=== PATIENT | female | born 1975 | race Caucasian/White ===

== ENCOUNTER 2017-03-21 18:05 | Emergency (ER) | payer MEDICAID ==
[~2017-03-21] VITALS: Ht 160 cm; Wt 94.8 kg
[2017-03-21] MEDS ORDERED: Norco 5mg/325mg tab ORAL ONE (19:15)
[2017-03-21 19:20] VITALS: BP 159/93
--- NOTE | 2017-03-21 19:39 | Emergency Room Report ---
History of Present Illness General Chief Complaint: Pain Source: Patient Present Illness HPI 41 YO Male presents to the ED c/o left anterior medial knee pain 10/10 in severity x3 days denies appreciable trauma or fall. Pain with full extension of the leg. No previous history of injury. Denies erythema, fevers, chills or increased temperature palpation. Denies swelling,Claudication or bruises. Denies numbness tingling or loss of sensation or gross motor movements of the extremities, incontinence of bowel or bladder. Denies CP, Palpitations, LOC, AMS , dizziness, Changes in Vision, Sensation, paresthesias, or a sudden severe headache. Allergies: Coded Allergies: IBUPROFEN (Verified Allergy, Unknown, 03/21/17) Patient History Past Medical History: see triage record Past Surgical History: none Pertinent Family History: none Last Menstrual Period: 2 weeks ago Immunizations: UTD Reviewed Nursing Documentation: PMH: Agreed, PSxH: Agreed Nursing Documentation-PMH Past Medical History: No Stated History Review of Systems All Other Systems: negative except mentioned in HPI Physical Exam Vital Signs Date Time Temp Pulse Resp B/P (MAP) Pulse Ox O2 Delivery O2 Flow Rate FiO2 03/21/17 18:15 97.9 81 16 159/93 99 Room Air Sp02 EP Interpretation: reviewed, normal General Appearance: no apparent distress, alert, GCS 15, non-toxic, obese Head: normocephalic, atraumatic ENT: hearing grossly normal, normal pharynx, no angioedema, normal voice Neck: full range of motion Respiratory: lungs clear, normal breath sounds, speaking full sentences Cardiovascular #1: regular rate, rhythm, no edema, normal capillary refill Cardiovascular #2: 2+ dorsalis pedis (R), 2+ dorsalis pedis (L) Rectal: deferred Musculoskeletal: back normal, gait/station normal, normal range of motion, tender - anteriomedial TTP, no increased laxity, no obvious deformity, exam difficult due to body habitus, no erythema, pt. has FROM with pain. Neurologic: alert, oriented x3, responsive, motor strength/tone normal, sensory intact, normal gait, speech normal Skin: normal color, no rash, warm/dry, well hydrated Medical Decision Making PA Attestation Dr. rob is my supervising Physician whom patient management has been discussed with. Diagnostic Impression: Primary Impression: Knee pain, left anterior ER Course 41 YO Male presents to the ED c/o left anterior medial knee pain 10/10 in severity x3 days denies appreciable trauma or fall. Pain with full extension of the leg. No previous history of injury. Denies erythema, fevers, chills or increased temperature palpation. Denies swelling,Claudication or bruises. Denies numbness tingling or loss of sensation or gross motor movements of the extremities, incontinence of bowel or bladder. Denies CP, Palpitations, LOC, AMS , dizziness, Changes in Vision, Sensation, paresthesias, or a sudden severe headache. Ddx considered but are not limited to Fracture, dislocation, contusion, Sprain/ Strain/Spasm, ligamental injury, arthritis just to name a few. Vital signs: are WNL, pt. is afebrile H&PE are most consistent with musculoskeletal injury will perform imaging to r/ o fractures/dislocations. ORDERS: - X-ray left knee 3 views- negative for fx, Dislocation, or significant soft tissue injury, per preliminary read in ED, and signed by MELCHOR Canales, my supervising physician has reviewed, and agrees with my interpretation. ED INTERVENTIONS: -Laurier by mouth -Da wrap applied by cartographic technician. Pt. remains neurovascularly intact. -She declined crutches d/w pt. conservative treatment, and to follow up with a primary care provider. pt given a list of primary care clinics for follow up. d/w pt. to return to the ED with worsening or new symptoms. D/W patient and that she may need MRI DISCHARGE: At this time pt. is stable for d/c to home. Will provide printed patient care instructions, and any necessary prescriptions. Care plan and follow up instructions have been discussed with the patient prior to discharge. Other X-Ray Diagnostic Results Other X-Ray Diagnostic Results : X-Ray ordered: Left Knee # of Views/Limited Vs Complete: 3 View Indication: Pain EP Interpretation: Yes MELCHOR Xray: Interpretation reviewed, by supervising MD, and agrees with findings. Interpretation: no dislocation, no soft tissue swelling, no fractures Impression: No acute disease Electronically Signed by: Tiffany Canales PA-C Last Vital Signs Date Time Temp Pulse Resp B/P (MAP) Pulse Ox O2 Delivery O2 Flow Rate FiO2 03/21/17 18:15 97.9 81 16 159/93 99 Room Air Disposition: HOME, SELF-CARE Condition: Stable Scripts Acetaminophen* (TYLENOL EXTRA STRENGTH*) 500 Mg Tablet 500 MG ORAL Q6H Y for Mild Pain/Temp > 100.5, #20 TAB 0 Refills Prov: Tiffany Canales 03/21/17 Referrals: NON PHYSICIAN (PCP) Patient Instructions: Knee Pain Additional Instructions: Take medications as directed. Follow up with a Primary Care Provider in 3-5 days, even if your symptoms have resolved. May require MRI --Please review list of primary care clinics, if you do not already have a primary care provider Return sooner to ED if new symptoms occur, or current symptoms become worse. - Please note that this Emergency Department Report was dictated using [employer] analyst technology software, occasionally this can lead to erroneous entry secondary to interpretation by the dictation equipment. Tiffany Canales Mar 21, 2017 19:39
[2017-03-21] MEDS ORDERED: TYLENOL EXTRA500 MG ORAL (20:02)
[2017-03-21 20:35] VITALS: BP 159/93
--- NOTE | 2017-03-22 10:34 | Diagnostic Imaging Report ---
Indications: Knee pain Technique: Three views of the left knee Comparison: None Findings: No acute fractures. No dislocations. Joint spaces are preserved. No radiopaque foreign body. Normal mineralization. Impression: No acute process
== END 2017-03-21 20:35 | disposition home or self-care (01) ==
LOC: EMR 18:25
DX: M25.562 Pain in left knee (principal); Z88.6 Allergy status to analgesic agent
CPT/HCPCS: 99283

== ENCOUNTER 2019-01-12 14:39 | Emergency (ER) | payer MEDICAID ==
[~2019-01-12] VITALS: Ht 162.6 cm; Wt 81.6 kg
[~2019-01-12 14:39] MED LIST: TYLENOL EXTRA500 MG ORAL
[2019-01-12] MEDS ORDERED: NKM (15:15)
--- NOTE | 2019-01-12 16:00 | NUR ---
ED Nurse Note:chest x-ray done
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
[2019-01-12 16:27] VITALS: BP 177/87
[2019-01-12] MEDS ORDERED: PROMETHAZINE-C118 M1 ORAL (17:12)
[2019-01-12] MEDS ORDERED: ZYRTEC10 MG ORAL (17:12)
[2019-01-12] MEDS ORDERED: ROBAXIN-750750 MG PO (17:12)
--- NOTE | 2019-01-12 17:23 | NUR ---
ER DISCHARGE NOTE: Patient is cleared to be discharged per ERMD, pt is aox4, on room air, with stable vital signs. pt was given dc and prescription instructions, pt was able to verbalize understanding, pt is able to ambulate with steady gait. pt took all belongings.
[2019-01-12 17:28] VITALS: BP 160/78
--- NOTE | 2019-01-13 13:01 | Diagnostic Imaging Report ---
Indication: Chest pain Technique: One view of the chest Comparison: none Findings: Lungs and pleural spaces are clear. Heart size is normal. Impression: No acute process
== END 2019-01-12 15:40 | disposition home or self-care (01) ==
LOC: EMR 15:30
DX: S29.011A Strain of muscle and tendon of front wall of thorax, initial encounter (principal); R07.82 Intercostal pain; Z88.8 Allergy status to other drugs, medicaments and biological substances; X58.XXXA Exposure to other specified factors, initial encounter; Y92.9 Unspecified place or not applicable
CPT/HCPCS: 71045; Z7502; 99283